=== PATIENT | female | born 1950 ===

== ENCOUNTER → 2018-03-07 | Outpatient (CLI) | payer MEDICARE ==
--- NOTE | 2018-03-08 02:38 | RADIOLOGY IMAGING REPORT ---
FACILITY: [facility] - [place] PATIENT NAME: Ade Small : 1950 MR: [id number] V: [id number] EXAM DATE: ORDERING PHYSICIAN: JO ANN MONTALVO TECHNOLOGIST: Location: [facility] - [place] Patient: Ade Small : 1950 Visit/Account:[id number] Date of Sevice: 03/07/2018 DEXA Scan Clinical history: Postmenopausal screening.. Comparison: None available. LUMBAR SPINE: The bone mineral density (BMD) measured from L2-L3 correlates with a Z-score of -1.7 and a T-score of -3.8 which is consistent with osteoporosis as defined by the World Health Organization. The corresp onding risk of fracture in the lumbar spine is increased 12-16 times compared with a young adult refe rence population. HIP: Bone mineral density (BMD) measured in the Left total hip region correlates with a Z-score of -2.3 an d a T-score of -4.1 which is consistent with osteoporosis as defined by the World Health Organization . The corresponding risk of fracture in the hip is increased greater than 16 times compared with a y oung adult reference population. Bone mineral density (BMD) measured in the Femoral Neck region measures 0.562 g/cm2. Impression: 1. Lumbar spine: Osteoporosis. 2. Left Hip: Osteoporosis. 3. Femoral Neck: Bone Mineral Density is 0.562 g/cm2 The next DEXA scan of this patient should include the following sites: L2-L3 and the left hip. FRAX? WHO Fracture Risk Assessment Tool link: <http://www.shef.ac.uk/FRAX/tool.jsp?locationValue=9> PLEASE NOTE: 1) The World Health Organization defines low BMD as follows: T-score Normal > -1 Osteopenia < -1 and > -2.5 Osteoporosis < -2.5 without fractures Established osteoporosis < -2.5 with fractures 2) In general, you may wish to consider: Diagnosis Treatment Follow-up DEXA Normal BMD Prevention 2-3 years Osteopenia Prevention/therapy 1-2 years Osteoporosis Therapy Yearly 3) Fracture risk estimated from the T-score is more accurate for vertebral fractures (often spontane ous) than for hip fractures. Report Dictated By: Javon Mobley MD at 03/08/2018 2:31 AM Report E-Signed By: Javon Mobley MD at 03/08/2018 2:33 AM WSN:[id number]
== END ==
LOC: MAMO 04:13
PROVIDERS: ATTEND Physician Assistant
DX: Z12.39 Encounter for other screening for malignant neoplasm of breast (principal); N95.8 Other specified menopausal and perimenopausal disorders; M81.0 Age-related osteoporosis without current pathological fracture
CPT/HCPCS: 77063; 77067; 77080

== ENCOUNTER → 2018-04-13 | Outpatient (CLI) | payer MEDICARE ==
--- NOTE | 2018-04-14 11:20 | RADIOLOGY IMAGING REPORT ---
FACILITY: [facility] PATIENT NAME: SUSANA BRINK : [id number] MR: [id number] V: [id number] EXAM DATE: ORDERING PHYSICIAN: JO ANN MONTALVO TECHNOLOGIST: Lesley Bell PROCEDURE:RIGHT DIGITAL DIAGNOSTIC MAMMOGRAM WITH CAD ASSISTED INTERPRETATION & 3D TOMOSYNTHESIS COMPARISON:None. INDICATIONS:Further Evaluation FINDINGS: The breasts are heterogeneously dense which may obscure small masses. The patient returns for a repeat Right MLO view and Spot compression views in the Right MLO and CC projection. The focal asymmetry just medial to midline in the posterior 1/3 of the Right breast on the prior Right CC view appeared compressible. The focal asymmetry just inferior to midline posterior 1/3 on the Right MLO view was partially compressible. A 6 month follow-up Right mammogram is recommended unless clinical findings warrant more immediate attention. DIAGNOSTIC CATEGORY 3--PROBABLY BENIGN FINDING. RECOMMENDATIONS: SIX MONTH FOLLOW-UP DIAGNOSTIC MAMMOGRAM: RIGHT BREAST. IMPRESSION: BIRADS 3: Probably benign finding. A 6 month follow-up Right mammogram is recommended as described. Dictated by: Adri Elliott M.D. on 04/13/2018 at 16:43 Transcribed by: EDGARDO on 04/14/2018 at 8:51 Approved by: Adri Elliott M.D. on 04/14/2018 at 11:19 [facility]
== END ==
LOC: MAMO 00:51
PROVIDERS: ATTEND Physician Assistant
DX: R92.2 Inconclusive mammogram (principal)
CPT/HCPCS: 77061; 77065

== ENCOUNTER → 2018-10-24 | Outpatient (CLI) | payer MEDICARE ==
--- NOTE | 2018-10-24 16:00 | RADIOLOGY IMAGING REPORT ---
[facility] PATIENT NAME: SUSANA BRINK : [id number] MR: [id number] V: [id number] EXAM DATE: ORDERING PHYSICIAN: JO ANN MONTALVO TECHNOLOGIST: Sindhu Hdz PROCEDURE:RIGHT DIGITAL MAMMOGRAM DIAGNOSTIC WITH CAD ASSISTED INTERPRETATION & 3D TOMOSYNTHESIS REASON FOR STUDY: 6 month follow-up possible lesion Right breast. MAMMOGRAM VIEWS OBTAINED: Right breast CC & MLO views. BREAST DENSITY: There are scattered areas of fibroglandular density. MAMMOGRAM FINDINGS: At the 2 o'clock position, posterior 1/3 for depth Right breast there is a 6mm focal asymmetry. This is unchanged from the prior study. ULTRASOUND AREA SCANNED: 1 o'clock to 3 o'clock position Right breast. ULTRASOUND FINDINGS: There is no suspicious mass. Normal fibroglandular tissue elements are seen. DIAGNOSTIC CATEGORY 2--BENIGN FINDING. RECOMMENDATIONS: ROUTINE MAMMOGRAM AND CLINICAL EVALUATION. IMPRESSION: BIRADS 2: Benign finding. Previously seen focal asymmetry Right breast represents a benign focus of normal glandular tissue. This was discussed with the patient. Dictated by: Cosme Magana M.D. on 10/24/2018 at 14:47 Transcribed by: EDGARDO on 10/24/2018 at 15:27 Approved by: Cosme Magana M.D. on 10/24/2018 at 15:58 [facility]
--- NOTE | 2018-10-24 16:00 | RADIOLOGY IMAGING REPORT ---
FACILITY: [facility] - [place] PATIENT NAME: SUSANA BRINK : [id number] MR: [id number] V: [id number] EXAM DATE: [id number] ORDERING PHYSICIAN: JO ANN MONTALVO TECHNOLOGIST: Edilia Anand RT(R)(CT) PROCEDURE:RIGHT DIGITAL MAMMOGRAM DIAGNOSTIC WITH CAD ASSISTED INTERPRETATION & 3D TOMOSYNTHESIS REASON FOR STUDY: 6 month follow-up possible lesion Right breast. MAMMOGRAM VIEWS OBTAINED: Right breast CC & MLO views. BREAST DENSITY: There are scattered areas of fibroglandular density. MAMMOGRAM FINDINGS: At the 2 o'clock position, posterior 1/3 for depth Right breast there is a 6mm focal asymmetry. This is unchanged from the prior study. ULTRASOUND AREA SCANNED: 1 o'clock to 3 o'clock position Right breast. ULTRASOUND FINDINGS: There is no suspicious mass. Normal fibroglandular tissue elements are seen. DIAGNOSTIC CATEGORY 2--BENIGN FINDING. RECOMMENDATIONS: ROUTINE MAMMOGRAM AND CLINICAL EVALUATION. IMPRESSION: BIRADS 2: Benign finding. Previously seen focal asymmetry Right breast represents a benign focus of normal glandular tissue. This was discussed with the patient. Dictated by: Cosme Magana M.D. on 10/24/2018 at 14:58 Transcribed by: EDGARDO on 10/24/2018 at 15:28 Approved by: Cosme Magana M.D. on 10/24/2018 at 15:58 [facility]
== END ==
LOC: MAMO 00:29
PROVIDERS: ATTEND Physician Assistant
DX: R92.2 Inconclusive mammogram (principal)
CPT/HCPCS: 77061; 77065